=== PATIENT | male | born 1935 | race Caucasian/White ===

== ENCOUNTER → 2016-07-18 | Outpatient (CLI) | payer OTHER ==
[~2016-07-18] MED LIST: ASPI81CH43
== END | disposition home or self-care (01) ==
LOC: LAB 10:00
PROVIDERS: ATTEND Physician Assistant
DX: K62.89 Other specified diseases of anus and rectum (principal)
CPT/HCPCS: 82270; 87045; 87177; 87899

== ENCOUNTER 2017-12-27 18:34 | Emergency (ER) | payer OTHER ==
[~2017-12-27] VITALS: Ht 177.8 cm; Wt 88.5 kg
[2017-12-27 18:57] VITALS: BP 147/69
== END 2017-12-27 19:11 | disposition left against medical advice (07) ==
LOC: ER 18:39
DX: T18.2XXA Foreign body in stomach, initial encounter (principal); Z53.21 Procedure and treatment not carried out due to patient leaving prior to being seen by health care provider; X58.XXXA Exposure to other specified factors, initial encounter; Y93.89 Activity, other specified; Y99.8 Other external cause status; Y92.89 Other specified places as the place of occurrence of the external cause

== ENCOUNTER 2019-06-13 15:19 | Emergency (ER) | payer OTHER ==
[~2019-06-13] VITALS: Ht 180.3 cm; Wt 88.5 kg
[2019-06-13] MEDS ORDERED: ACETAMINOPHEN 325 MG TAB PO ONE (15:45)
[2019-06-13 16:18] LABS: Urine Bacteria FEW /hpf (None Seen); Urine Blood Negative /uL (Negative); Urine Mucus FEW (None Seen); Urine Specific Gravity 1.018 (1.001-1.035); Urine WBC 216 /hpf (0 - 3)
[2019-06-13 16:38] LABS: Basophils # (auto) 0.1 10 ^3/uL (0-0.2); Basophils % (auto) 0.9 % (0.0-2.0); Eosinophils # (auto) 0.5 10 ^3/uL (0-0.8); Eosinophils % (auto) 5.2 % (0.0-7.0); Hematocrit 43.9 % (41.0-53.0); Hemoglobin 14.8 g/dL (13.5-17.5); Lymphocytes # (auto) 2.6 10 ^3/uL (0.4-5.4); Lymphocytes % (auto) 29.4 % (10.0-50.0); Mean Corpuscular Hgb Conc. 33.9 g/dL (32.0-36.0); Mean Corpuscular Volume 100.3 fL (80.0-100.0); Monocytes # (auto) 1.1 10 ^3/uL (0-1.3); Neutrophils # (auto) 4.7 10 ^3/uL (1.6-8.6); Neutrophils % (auto) 52.5 % (37.0-80.0); Platelet Count (auto) 224 10^3/uL (140-450); Red Blood Cells 4.37 10^6/uL (4.5-5.90); Red Cell Distribution Width 14.2 % (11.8-14.3)
[2019-06-13 16:52] LABS: Albumin 3.4 g/dL (3.4-5.0); Calcium 9.3 mg/dL (8.5-10.1); Potassium 3.8 mmol/L (3.5-5.1)
[2019-06-13 16:55] LABS: BUN/Creatinine Ratio 14.2; Bilirubin, Total 0.4 mg/dL (0.2-1.0); Total Protein 7.1 g/dL (6.4-8.2)
[2019-06-13] MEDS ORDERED: CIPROFLOXACIN HCL 500 MG TAB PO ONE (17:00)
[2019-06-13] MEDS ORDERED: cefTRIAXone 1GM/50ML D5W 50 ML IV ONE (17:15)
[2019-06-13] MEDS ORDERED: SODIUM CHLORIDE 0.9% 1,000 ML IV ONE (17:15)
[2019-06-13] MEDS ORDERED: HYDROcodone-ACET 5/325MG TAB PO ONE (17:30)
[2019-06-13 18:25] VITALS: BP 155/71
== END 2019-06-13 19:23 | disposition home or self-care (01) ==
LOC: ER 15:22
DX: A05.9 Bacterial foodborne intoxication, unspecified (principal); N39.0 Urinary tract infection, site not specified; K57.10 Diverticulosis of small intestine without perforation or abscess without bleeding; K43.9 Ventral hernia without obstruction or gangrene; K44.9 Diaphragmatic hernia without obstruction or gangrene
CPT/HCPCS: 36415; 74176; 80053; 81001; 82150; 83690; 85025; 93005; 96360; 96361; 99285; J0696; J7030; 96365

== ENCOUNTER 2019-06-19 15:39 | Inpatient (IN) | payer OTHER ==
[~2019-06-19] VITALS: Ht 177.8 cm; Wt 87.3 kg
[2019-06-19] MEDS ORDERED: SODIUM CHLORIDE 0.9% 1,000 ML IV ONE (15:52)
[2019-06-19] MEDS ORDERED: HYDROmorphone HCL 2 MG/ML VL IV ONE (16:00)
[2019-06-19] MEDS ORDERED: ONDANSETRON HCL 4 MG/2 ML VIAL IV ONE (16:00)
[2019-06-19 16:34] LABS: Basophils # (auto) 0.1 10 ^3/uL (0-0.2); Eosinophils # (auto) 0.5 10 ^3/uL (0-0.8); Hemoglobin 13.7 g/dL (13.5-17.5); Lymphocytes # (auto) 1.9 10 ^3/uL (0.4-5.4); Monocytes # (auto) 1.1 10 ^3/uL (0-1.3)
[2019-06-19 16:36] LABS: Basophils % (auto) 1.2 % (0.0-2.0); Eosinophils % (auto) 6.9 % (0.0-7.0); Lymphocytes % (auto) 24.3 % (10.0-50.0); Mean Corpuscular Hemoglobin 34.5 pg (28.0-32.0); Mean Corpuscular Hgb Conc. 34.2 g/dL (32.0-36.0); Monocytes % (auto) 13.8 % (0.0-12.0); Neutrophils # (auto) 4.2 10 ^3/uL (1.6-8.6); Neutrophils % (auto) 53.8 % (37.0-80.0); Nucleated Red Blood Cells % 0.2 %; Platelet Count (auto) 191 10^3/uL (140-450); Red Blood Cells 3.96 10^6/uL (4.5-5.90); Red Cell Distribution Width 14.1 % (11.8-14.3); White Blood Cell 7.8 10^3/uL (4.4-10.8)
[2019-06-19 16:53] LABS: Calcium 8.4 mg/dL (8.5-10.1); Magnesium 2.1 mg/dL (1.6-2.6); Potassium 3.6 mmol/L (3.5-5.1)
[2019-06-19 16:57] LABS: BUN/Creatinine Ratio 15.9; Bilirubin, Total 0.3 mg/dL (0.2-1.0); Total Protein 6.4 g/dL (6.4-8.2)
[2019-06-19 17:11] LABS: INR 1.11 (0.9-1.15); Partial Thromboplastin Time 29.3 sec (23.64-32.05)
[2019-06-19] MEDS ORDERED: cefTRIAXone 1GM/50ML D5W 50 ML IV ONE (17:30)
[2019-06-19] MEDS ORDERED: FUROSEMIDE 40 MG/4 ML VIAL IV ONE (17:30)
[2019-06-19] MEDS ORDERED: ACETAMINOPHEN 500 MG TAB PO PRN (18:00)
[2019-06-19] MEDS ORDERED: ONDANSETRON HCL 4 MG/2 ML VIAL IV PRN (18:00)
[2019-06-19] MEDS ORDERED: MORPHINE SULF INJ 2 MG/ML SYRINGE 1ML IV PRN (18:00)
[2019-06-19] MEDS ORDERED: NITROGLYCERIN 0.4 MG SL TAB SL PRN (18:00)
[2019-06-19] MEDS ORDERED: ENALAPRILAT 1.25 MG/ML-1ML VIAL IV PRN (18:30)
[2019-06-19 18:54] LABS: Urine Bacteria FEW /hpf (None Seen); Urine Blood Negative /uL (Negative); Urine Hyaline Cast FEW /lpf (0 - 2); Urine Specific Gravity 1.009 (1.001-1.035); Urine WBC 1 /hpf (0 - 3)
[2019-06-19] MEDS: HYDROcodone-ACET 5/325MG TAB PO PRN (18:55)
[2019-06-19] MEDS: MORPHINE SULF INJ 2 MG/ML SYRINGE 1ML IV PRN (20:16)
--- NOTE | 2019-06-19 20:20 | NUR ---
Admitted this 84 year old male client from ER/ED. to [facility] Floor by leslie with the chief complaint of S/p fall secondary to Left Hip Fracture. Pt. placed to room 293 bed A. Pt. alert, awake, oriented x 4, @ 2L/NC continuous attached to the 02 @ the wall, lung sounds diminished, on Tele # 81 SR @ 60's to 70's @ the monitor, denies chest pain or denies chest discomfort. Pt. verbalized he fell today @ the store and experiencing Left hip pain secondary to the Left Hip Fracture. Pt. abdomen soft, rounded and non-tender. Bowels sounds present x 4 abdominal quadrants. Generally skin intact. Generally weak and needs total assist with ADL's. Pt. 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
--- NOTE | 2019-06-19 20:30 | NUR ---
Pt. given orientation to the room, room number and unit including hospital policies "no smoking" and limit one (1) person during visitation and hours of visitation. Pt. provided orientation about safety and the use of call-light, phone, TV and bed controls. Gathered data from pt. by the the resource NABOR Lira and assigned NABOR Chakraborty. Keep pt. safe, warm and comfortable in bed. Call-light within pt.'s reach. Provided pt. urinal @ the bedside.
[2019-06-19 20:40] VITALS: BP 113/71
--- NOTE | 2019-06-19 20:40 | NUR ---
Pt. decided to have his Family Password as Barnett as his nickname.
--- NOTE | 2019-06-19 21:00 | NUR ---
Daughter Monica called for her Dad's update of condition upon admission and leave her tel. number # . Informed Monica that her Dad chose his nickname Anibal as the "PASSWORD" to protect pt. confidentiality of health care information. Pt.'s daughter Monica informed RN that " 1935 " was the Password but said okay that "galloway" or "vean" is okay to as a password since its her Dad's or pt.'s nickname.
--- NOTE | 2019-06-19 21:10 | NUR ---
Another family member - a son fontana and wants to know his Dad's present condition. Notified the son to call his sister IVETH to get to know the Family PASSWORD so as to protect the pt.'s Health information. Son @ the phone verbalized understanding.
[2019-06-19] MEDS ORDERED: INFLUENZA QUAD 2019-2020 0.5ml SYRG IM ONE (21:30)
--- NOTE | 2019-06-19 21:30 | NUR ---
Primitivo, pt.'s called and asked about her husbands present condition upon admission. Pt.'s notified to ask her Daughter Monica their Family PASSWORD so as to protect pt. health information. It will be Monica , the Daughter to inform the mother named PRIMITIVO (pt.'s ) about the correct Password.
[2019-06-19 22:00] VITALS: BP 113/71
--- NOTE | 2019-06-19 22:30 | NUR ---
Pt. resting and quiet in bed. Call-light within reach. SR with 1st Deg. AVB @ the monitor @ the 70's. Pt. denies chest pain, continuous with 02 @ 2L/NC. No s/s of sob or dyspnea. Pt.'s breathing symmetrical and unlabored. Keep pt. safe and sinker winder bed. Call-light and telephone within pt.'s reach. Keep pt. room dim lighted to facilitate rest and sleep.
--- NOTE | 2019-06-20 | NUR ---
SR @ 70's @ the monitor @ [employer] # 81.
--- NOTE | 2019-06-20 | NUR ---
Pt. started on NPO post MN as ordered by the Doctor. - see order history.
[2019-06-20] MEDS: MORPHINE SULF INJ 2 MG/ML SYRINGE 1ML IV PRN ×2 (00:17→04:53)
--- NOTE | 2019-06-20 00:17 | NUR ---
Pt. given Morphine 2 mg. IV prn for severe pain about 10/10 scale @ the Left hip fracture site s/p Fall. Pt. verb. pain as aching and hurting.
--- NOTE | 2019-06-20 00:47 | NUR ---
Pt. calm and comfortable. Pt. denies pain after 30 minutes IV pain reliever Morphine Sulfate given. Pt. starting to sleep. No s/s of facial grimacing. No s/s of anxiety or agitation.
--- NOTE | 2019-06-20 02:00 | NUR ---
Pt. sleeping undisturbed @ this time. Keep pt. room environment free from unnecessary noise. Call-light within pt.'s reach.
[2019-06-20] MEDS: HYDROcodone-ACET 5/325MG TAB PO PRN (03:12)
--- NOTE | 2019-06-20 03:12 | NUR ---
Pt. given [place] 1 tab. po. for Left hip pain about moderate 6/10 scale.
--- NOTE | 2019-06-20 04:00 | NUR ---
Kept pt. on NPO. Pt. made aware. Pt. understand partially , will reenforce pt. understanding on NPO for possible surgery @ the Left Hip. See orders.
--- NOTE | 2019-06-20 04:12 | NUR ---
Pt. with facial grimacing mild pain by face and body 3/10 scale. SR @ the monitor the 80's @ Tele # 81.
[2019-06-20 05:22] VITALS: BP 131/64
[2019-06-20 06:45] LABS: Basophils # (auto) 0.1 10 ^3/uL (0-0.2); Eosinophils # (auto) 0.1 10 ^3/uL (0-0.8); Eosinophils % (auto) 1.2 % (0.0-7.0); Hemoglobin 12.9 g/dL (13.5-17.5); Neutrophils # (auto) 7.7 10 ^3/uL (1.6-8.6)
[2019-06-20 06:48] LABS: Basophils % (auto) 0.8 % (0.0-2.0); Hematocrit 37.1 % (41.0-53.0); Lymphocytes # (auto) 1.6 10 ^3/uL (0.4-5.4); Lymphocytes % (auto) 14.8 % (10.0-50.0); Mean Corpuscular Hemoglobin 34.9 pg (28.0-32.0); Mean Corpuscular Hgb Conc. 34.8 g/dL (32.0-36.0); Mean Corpuscular Volume 100.4 fL (80.0-100.0); Monocytes # (auto) 1.4 10 ^3/uL (0-1.3); Monocytes % (auto) 12.8 % (0.0-12.0); Neutrophils % (auto) 70.4 % (37.0-80.0); Platelet Count (auto) 191 10^3/uL (140-450); Red Blood Cells 3.69 10^6/uL (4.5-5.90); White Blood Cell 10.9 10^3/uL (4.4-10.8)
[2019-06-20 07:04] LABS: Albumin 2.9 g/dL (3.4-5.0); Potassium 4.2 mmol/L (3.5-5.1)
[2019-06-20 07:07] LABS: BUN/Creatinine Ratio 18.4; Calcium 8.5 mg/dL (8.5-10.1)
[2019-06-20 07:10] LABS: Bilirubin, Total 0.6 mg/dL (0.2-1.0); Total Protein 6.2 g/dL (6.4-8.2)
--- NOTE | 2019-06-20 07:30 | NUR ---
AT BEDSIDE DR QUIROZ IN TO CONSULT WITH PATIENT. INFORMED CONSENT OBTAINED FOR PROCEDURE.
[2019-06-20 08:00] VITALS: BP 114/61
--- NOTE | 2019-06-20 08:00 | NUR ---
OPENING SHIFT NOTE ASSUMED CARE OF PATIENT AWAKE AND ALERT. NO S/S OF DISTRESS NOTED. PATIENT HAS A COMPLAINT OF 10/10 PAIN TO LEFT HIP. WILL MEDICATE PER MD ORDER AND MAR. PATIENT UPDATED ON POC FOR THE DAY AND ALL QUESTIONS ANSWERED. BED IS IN LOWEST, LOCKED POSITION WITH SIDE RAILS UP X2 AND CALL LIGHT WITHIN REACH.
[2019-06-20 08:46] VITALS: BP 121/65
[2019-06-20] MEDS: OXYCODONE W/ ACETAMINOPHEN 5/325MG TABLET PO PRN ×3 (08:50→21:57)
--- NOTE | 2019-06-20 09:45 | NUR ---
MD AT BEDSIDE DR HA IN TO UPDATE PATIENT ON POC.
[2019-06-20] MEDS: FAMOTIDINE 20 MG TAB PO SCH (09:55)
[2019-06-20] MEDS ORDERED: ALUM & MAG HYDROX-SIMETH LIQ(MAALOX) 30 ML PO PRN (10:00)
[2019-06-20 12:30] VITALS: BP_SYST 121; BP_DIAS 53; BP_DIAS 65
--- NOTE | 2019-06-20 13:50 | NUR ---
AT BEDSIDE DR CHANCE AT BEDSIDE CONSULTING WITH PATIENT.
--- NOTE | 2019-06-20 14:43 | NUR ---
ECHO ELECTRICAL AND INSTRUMENTATION MANAGER AT BEDSIDE
[2019-06-20] MEDS: ENOXAPARIN SOD 40 MG/0.4 ML SYRINGE SC SCH (16:14)
[2019-06-20] MEDS ORDERED: TERA2CAP45 PO (16:28)
[2019-06-20 17:22] VITALS: BP 126/61
[2019-06-20] MEDS: TAMSULOSIN HYDROCHLORIDE 0.4 MG CAP PO SCH (18:36)
[2019-06-20 22:04] VITALS: BP 106/51
[2019-06-21] VITALS (13 sets, daily range): BP systolic 88–153; BP diastolic 53–78
--- NOTE | 2019-06-21 02:34 | NUR ---
1999 PATIENT MET AWAKE AND ALERT. LYING CALM IN A SUPINE POSITION. VERBALIZED LEFT HIP FRACTURE FOR WHICH HE IS SCHEDULED FOR SURGICAL REPAIR IN AM. PATIENT AWARE HE IS NPO POST MIDNIGHT. HE DENIED PAIN AT THIS TIME BUT STATED WILL CALL IF NEEDED.
--- NOTE | 2019-06-21 02:38 | NUR ---
2157 PATIENT MEDICATED FOR PAIN .PAIN LEVEL 10/13 2300 PATIENT SLEEPING.
[2019-06-21 06:09] LABS: Basophils # (auto) 0.1 10 ^3/uL (0-0.2); Lymphocytes # (auto) 1.9 10 ^3/uL (0.4-5.4); Lymphocytes % (auto) 17.7 % (10.0-50.0)
[2019-06-21 06:11] LABS: Eosinophils # (auto) 0.4 10 ^3/uL (0-0.8); Eosinophils % (auto) 3.4 % (0.0-7.0); Hematocrit 36.2 % (41.0-53.0); Hemoglobin 12.6 g/dL (13.5-17.5); Mean Corpuscular Hemoglobin 34.9 pg (28.0-32.0); Mean Corpuscular Hgb Conc. 34.7 g/dL (32.0-36.0); Mean Corpuscular Volume 100.6 fL (80.0-100.0); Monocytes # (auto) 1.5 10 ^3/uL (0-1.3); Monocytes % (auto) 14.1 % (0.0-12.0); Neutrophils # (auto) 6.7 10 ^3/uL (1.6-8.6); Neutrophils % (auto) 63.8 % (37.0-80.0); Nucleated Red Blood Cells % 0.1 %; Platelet Count (auto) 196 10^3/uL (140-450); Red Cell Distribution Width 14.2 % (11.8-14.3); White Blood Cell 10.6 10^3/uL (4.4-10.8)
[2019-06-21 06:27] LABS: BUN/Creatinine Ratio 19.8; Calcium 8.5 mg/dL (8.5-10.1); Magnesium 2.2 mg/dL (1.6-2.6)
[2019-06-21] MEDS: OXYCODONE W/ ACETAMINOPHEN 5/325MG TABLET PO PRN ×2 (08:12→15:53)
[2019-06-21] MEDS ORDERED: fentaNYL CITRATE 100 MCG/2 ML VL ONE (08:41)
[2019-06-21] MEDS ORDERED: PROPOFOL 10 MG/ML 20 ML IV ONE (08:41)
[2019-06-21] MEDS ORDERED: ONDANSETRON HCL 4 MG/2 ML VIAL ONE (08:41)
[2019-06-21] MEDS ORDERED: SODIUM CHLORIDE LOCK 10 ML ONE (08:41)
[2019-06-21] MEDS ORDERED: MORPHINE SULF(PF) 0.5MG/ML 10ML VIAL ONE (08:41)
[2019-06-21] MEDS ORDERED: MIDAZOLAM HCL 1MG/1ML-2 ML VIAL ONE (08:41)
--- NOTE | 2019-06-21 08:43 | NUR ---
OPENING SHIFT NOTE ASSUMED CARE OF PATIENT AWAKE AND ALERT. NO S/S OF DISTRESS NOTED. PATIENT HAS A COMPLAINT OF 10/10 PAIN TO LEFT HIP. WILL MEDICATE PER MD ORDER AND MAR. PATIENT UPDATED ON POC FOR THE DAY AND ALL QUESTIONS ANSWERED. BED IS IN LOWEST, LOCKED POSITION WITH SIDE RAILS UP X2 AND CALL LIGHT WITHIN REACH. WILL CONTINUE TO MONITOR Q1H AND PRN.
[2019-06-21] MEDS ORDERED: TETRACAINE 1% INJ 2 ML VIAL IJ ONE (08:44)
[2019-06-21] MEDS ORDERED: LIDOCAINE 1% HCL (LOCAL ANESTH.) INJ 20ML MDV ONE (08:44)
[2019-06-21] MEDS ORDERED: SUCCINYLCHOLINE CHLORIDE 20 MG/ML 10ML VIAL IV ONE (08:44)
--- NOTE | 2019-06-21 08:57 | NUR ---
OFF UNIT PATIENT TAKEN VIA GURNEY TO OR WITHOUT INCIDENT.
[2019-06-21] MEDS ORDERED: BUPIVACAINE/DEXTROSE MPF 0.75% 2 ML AMP IT ONE (09:02)
[2019-06-21] MEDS ORDERED: ceFAZolin 1GM/50ML 50 ML IV ONE (09:10)
[2019-06-21] MEDS ORDERED: EPINEPHrine HCL 1 MG/1 ML AMP ONE (09:29)
[2019-06-21] MEDS: ENOXAPARIN SOD 40 MG/0.4 ML SYRINGE SC SCH (10:00)
[2019-06-21] MEDS: FAMOTIDINE 20 MG TAB PO SCH (10:00)
[2019-06-21] MEDS: LACTATED RINGER'S 1,000 ML IV SCH ×2 (10:50→20:50)
[2019-06-21] MEDS: ceFAZolin 1GM/50ML 50 ML IV SCH ×3 (11:00→23:25)
--- NOTE | 2019-06-21 11:45 | NUR ---
BACK TO UNIT PATIENT BROUGHT BACK TO UNIT AFTER REPORT RECEIVED. PATIENT PLACED ON 4L NC SATTING AT 92% AND BEDSPREAD INSPECTOR CONNECTED. LEFT HIP SURGICAL SITE ASSESSED, DRESSING IS CLEAN, DRY, AND INTACT. PATIENT REORIENTED TO PRIMARY RN AND ROOM. WILL CONTINUE TO MONITOR.
--- NOTE | 2019-06-21 12:00 | NUR ---
SPINAL ANESTHESIA PROTOCOL INITIATED PATIENT PLACED ON CONTINUOUS PULSE OX. NIBP SET UP TO RECORD BLOOD PRESSURE EVERY HOUR. WILL CONTINUE TO MONITOR.
--- NOTE | 2019-06-21 12:10 | NUR ---
AMS DURING ROUNDING PATIENT DISCOVERED TO BE NAKED AND DISCONNECTED FROM PULSE OX, OXYGEN, NIBP AND TELE. PILLOWS AND BLANKETS SCATTERED AROUND THE FLOOR. ATTEMPTED TO REORIENT PATIENT, EFFORTS MET WITH DEFIANCE. SITTER OBTAINED AT BEDSIDE FOR SAFETY. WILL CLOSELY MONITOR.
[2019-06-21] MEDS ORDERED: HYDROmorphone HCL 2 MG/ML VL IV PRN (12:15)
[2019-06-21] MEDS ORDERED: fentaNYL CITRATE 100 MCG/2 ML VL IV PRN (12:15)
[2019-06-21] MEDS ORDERED: ONDANSETRON HCL 4 MG/2 ML VIAL IV PRN (12:15)
[2019-06-21] MEDS ORDERED: diphenhdrAMINE HCL 50 MG/1 ML VL IV PRN (12:15)
[2019-06-21] MEDS ORDERED: MORPHINE SULFATE 4 MG/ML SYR/VIAL IV PRN (12:15)
--- NOTE | 2019-06-21 12:20 | NUR ---
FAMILY FAMILY NOTIFIED OF PATIENT'S STATUS.
--- NOTE | 2019-06-21 12:31 | NUR ---
PT PLACED ON BEDSIDE CONTINUOUS PULSE OX MONITOR. ALARMS SET AND AUDIBLE. PT ON 4LNC, SPO2 94%, HR 98, RR 17.
--- NOTE | 2019-06-21 17:00 | NUR ---
MENTATION PATIENT IS COOPERATIVE AND MORE RESPONSIVE TO CARE. STAFF CONTINUES TO REORIENT HIM WITH IMPROVED SUCCESS. SITTER REMAINS AT BEDSIDE FOR SAFETY.
[2019-06-21] MEDS: TAMSULOSIN HYDROCHLORIDE 0.4 MG CAP PO SCH (18:09)
--- NOTE | 2019-06-21 20:09 | NUR ---
open note assumed care of pt. upon entering room exceptional student education teacher at bedside. pt eyes closed, breathing is even and unlabored. on 2L nc no distress noted. pt bed locked, low and 2x rails up. call light in reach. pt on continuous pulse ox and vitals q1hr per post spinal duramorph protocol. this nurse will update pt on poc later in shift. this nurse to round q1hr and prn, encouraged sitter to call as needed.
--- NOTE | 2019-06-21 20:24 | NUR ---
sitter reports that pt had momentarily woken up whilst temp was being taken and began to attempt getting out of bed, removing gown and was disoriented. sitter was able to redirect. upon this nurse entering room, pt eyes closed, breathing was regular and unlabored. no distress noted. will continue to monitor.
--- NOTE | 2019-06-21 23:16 | NUR ---
dr brooks ordered kat for immobility. pt reports trouble emptying bladder, scanner showed residual of 54ml. then pt voided 55ml, then 50 ml shortly thereafter. pt approved to attempt kat catheter placement. this nurse attempted with 14french. pt tolerated well however, no urine flow visualized, unable to advance catheter past certain point. pt remains without kat, this nurse will continue to monitor urine output.
[2019-06-22] VITALS (14 sets, daily range): BP systolic 106–136; BP diastolic 53–77
[2019-06-22] MEDS: OXYCODONE W/ ACETAMINOPHEN 5/325MG TABLET PO PRN ×2 (02:41→10:36)
[2019-06-22] MEDS: HYDROcodone-ACET 5/325MG TAB PO PRN ×2 (06:18→15:30)
[2019-06-22 07:05] LABS: Basophils # (auto) 0.1 10 ^3/uL (0-0.2); Eosinophils # (auto) 0.1 10 ^3/uL (0-0.8); Hemoglobin 11.8 g/dL (13.5-17.5); Platelet Count (auto) 194 10^3/uL (140-450); Red Blood Cells 3.42 10^6/uL (4.5-5.90)
[2019-06-22 07:08] LABS: Basophils % (auto) 0.6 % (0.0-2.0); Eosinophils % (auto) 0.6 % (0.0-7.0); Hematocrit 34.4 % (41.0-53.0); Lymphocytes # (auto) 1.8 10 ^3/uL (0.4-5.4); Lymphocytes % (auto) 13.2 % (10.0-50.0); Mean Corpuscular Hemoglobin 34.4 pg (28.0-32.0); Mean Corpuscular Hgb Conc. 34.1 g/dL (32.0-36.0); Mean Corpuscular Volume 100.7 fL (80.0-100.0); Monocytes # (auto) 2.3 10 ^3/uL (0-1.3); Monocytes % (auto) 16.3 % (0.0-12.0); Neutrophils # (auto) 9.6 10 ^3/uL (1.6-8.6); Neutrophils % (auto) 69.3 % (37.0-80.0); Red Cell Distribution Width 14.1 % (11.8-14.3); White Blood Cell 13.8 10^3/uL (4.4-10.8)
[2019-06-22] MEDS: LACTATED RINGER'S 1,000 ML IV SCH ×2 (07:17→16:50)
[2019-06-22 07:25] LABS: Albumin 2.6 g/dL (3.4-5.0); Calcium 8.3 mg/dL (8.5-10.1); Magnesium 2.2 mg/dL (1.6-2.6); Potassium 4.2 mmol/L (3.5-5.1)
[2019-06-22 07:29] LABS: BUN/Creatinine Ratio 22.9; Bilirubin, Total 0.6 mg/dL (0.2-1.0); Total Protein 6.4 g/dL (6.4-8.2)
--- NOTE | 2019-06-22 07:30 | NUR ---
Opening Shift Note Assumed care of patient, awake, noted confused. Sitter at bedside. No S/S of distress/SOB or pain. Intsructed on POC and to call for assist PRN. Patient placed on SCD's, patient provided with IS and instructed on use he verbalized understanding and return demonstration. Sitter at bedside instructed to assist patient as needed. Dressing c/d/i to left hip. Will continue to monitor for changes Q1hr and PRN.
--- NOTE | 2019-06-22 08:35 | NUR ---
Respiratory note: PT IS RESTING COMFORTABLY. NO RESPIRATORY DISTRESS NOTED. SPO2 94% ON 2LNC, HR 85, RR 16, BS CLEAR BILATERALLY. NO FURTHER RESPIRATORY INTERVENTION INDICATED AT THIS TIME. PT INFORMED TO PUSH CALL BUTTON IF INCREASED WOB, SOB, OR WHEEZING OCCURS.
[2019-06-22] MEDS: ENOXAPARIN SOD 40 MG/0.4 ML SYRINGE SC SCH (10:34)
[2019-06-22] MEDS: FAMOTIDINE 20 MG TAB PO SCH (10:35)
--- NOTE | 2019-06-22 13:00 | NUR ---
Blood pressure attachment returned to charge office to David reina. Patient laying comfortably in bed in no acute distress or sob. Sitter at bedside
--- NOTE | 2019-06-22 13:55 | NUR ---
at bedside MD Weaver at bedside, aware of patient's status. Patient stood up out of bed with walker and P.T. No new orders received at this time. Will cont care
[2019-06-22] MEDS: TAMSULOSIN HYDROCHLORIDE 0.4 MG CAP PO SCH (17:51)
--- NOTE | 2019-06-22 19:04 | NUR ---
Patient care endorsed endorsed care to Juma rn. Patient sitting up in bed no acute distress or sob noted. Sitter at bedside
--- NOTE | 2019-06-22 20:10 | NUR ---
open note assumed care of pt. upon entering room sitter at bedside, pt awake alert and oriented x3. this nurse oriented pt to date. pt on 2L NC no distress noted or expressed. pt denies any pain at this time. pt has aquacell dressing to left hip and is intact without any visible drainage. pt does have bouts of confusion, at times during this nurses interview, pt reports he is at "the bank" and quickly corrects himself. bed is locked, low and 2x rails up. call ight in reach, this nurse to round q1hr and prn. this nurse encouraged pt and sitter to call as needed.
[2019-06-23] VITALS (7 sets, daily range): BP systolic 109–153; BP diastolic 55–70
[2019-06-23] MEDS: HYDROcodone-ACET 5/325MG TAB PO PRN (02:01)
[2019-06-23 05:29] LABS: Hemoglobin 10.7 g/dL (13.5-17.5)
[2019-06-23 05:32] LABS: Basophils # (auto) 0.1 10 ^3/uL (0-0.2); Basophils % (auto) 0.9 % (0.0-2.0); Eosinophils # (auto) 0.1 10 ^3/uL (0-0.8); Hematocrit 31.5 % (41.0-53.0); Hematocrit 31.6 % (41.0-53.0); Hemoglobin 10.6 g/dL (13.5-17.5); Lymphocytes # (auto) 1.6 10 ^3/uL (0.4-5.4); Lymphocytes % (auto) 12.2 % (10.0-50.0); Mean Corpuscular Hemoglobin 33.7 pg (28.0-32.0); Mean Corpuscular Hgb Conc. 33.7 g/dL (32.0-36.0); Mean Corpuscular Volume 100.1 fL (80.0-100.0); Monocytes % (auto) 14.6 % (0.0-12.0); Neutrophils # (auto) 9.6 10 ^3/uL (1.6-8.6); Neutrophils % (auto) 71.3 % (37.0-80.0); Platelet Count (auto) 204 10^3/uL (140-450); Red Blood Cells 3.15 10^6/uL (4.5-5.90); Red Cell Distribution Width 14.1 % (11.8-14.3); White Blood Cell 13.4 10^3/uL (4.4-10.8)
[2019-06-23 05:54] LABS: Potassium 3.8 mmol/L (3.5-5.1)
[2019-06-23 05:58] LABS: BUN/Creatinine Ratio 28.8; Calcium 8.2 mg/dL (8.5-10.1); Magnesium 2.2 mg/dL (1.6-2.6)
[2019-06-23] MEDS: FAMOTIDINE 20 MG TAB PO SCH (09:47)
[2019-06-23] MEDS: ENOXAPARIN SOD 40 MG/0.4 ML SYRINGE SC SCH (09:47)
[2019-06-23] MEDS: OXYCODONE W/ ACETAMINOPHEN 5/325MG TABLET PO PRN ×2 (09:58→18:22)
[2019-06-23] MEDS ORDERED: MIDAZOLAM HCL 1MG/1ML-2 ML VIAL IV ONE (12:59)
--- NOTE | 2019-06-23 13:50 | NUR ---
Spoke to patient's family spoke to Maryana, patient's daughter, updated on POC after password confirmed. Maryana requesting provider's call to family for update as well, MD Weaver aware and states he will call family tomorrow. No new orders at this time, [facility]
[2019-06-23] MEDS: TAMSULOSIN HYDROCHLORIDE 0.4 MG CAP PO SCH (18:22)
--- NOTE | 2019-06-23 19:10 | NUR ---
Patient care endorsed endorsed care to Nataliia reina. Patient assisted to bedpan as patient states he will have a bowel movement. Sitter at bedside. Patient in no acute distress or sob. Instructed to call primary rn prn
--- NOTE | 2019-06-23 20:10 | NUR ---
Opening Shift Note Assumed care of patient, awake and alert. No S/S of distress/SOB or pain. Patient is on 2 liters of oxygen via nasal cannula. Respirations even and unlabored. Sitter at bedside. Instructed on POC and to call for assist PRN, will continue to monitor for changes Q1hr and PRN.
--- NOTE | 2019-06-23 21:06 | NUR ---
Wound care done Incision to left lower hip cleansed with wound cleanser, pat dry with 4x4 gauze, and Prim[place] dressing placed. Incision had no drainage, janice were intact, incision well-approximated, and no signs of infection.
--- NOTE | 2019-06-23 22:00 | NUR ---
SCDs placed on both of patient's legs per MD order. Patient educated purpose of SCDs is to help increase blood flow. Patient verbalized understanding.
[2019-06-24 05:00] VITALS: BP 131/71
[2019-06-24 05:58] LABS: Hematocrit 29.8 % (41.0-53.0)
[2019-06-24 06:01] LABS: Hemoglobin 10.5 g/dL (13.5-17.5)
--- NOTE | 2019-06-24 06:50 | NUR ---
Incentive Spirometer (IS) education provided Patient educated on use of IS and to use IS 10 times per hour. Patient verbalized understanding and performed return demonstration. Patient able to reach a maximum of 1,500 ml.
--- NOTE | 2019-06-24 07:00 | NUR ---
CLOSING NOTE No S/S of distress/SOB or pain. Patient is on 2 liters of oxygen via nasal cannula. Respirations even and unlabored. Sitter at bedside. SCDs are on both legs.
--- NOTE | 2019-06-24 07:30 | NUR ---
Opening Note Assumed patient care from MARCELLA RN.
--- NOTE | 2019-06-24 07:59 | NUR ---
Called PT Called physical therapist regarding PT evaluation. Patient has been been evaluated and will be seen again today.
[2019-06-24 09:00] VITALS: BP 133/73
[2019-06-24] MEDS: FAMOTIDINE 20 MG TAB PO SCH (09:53)
[2019-06-24] MEDS: HYDROcodone-ACET 5/325MG TAB PO PRN (09:54)
[2019-06-24] MEDS: ENOXAPARIN SOD 40 MG/0.4 ML SYRINGE SC SCH (09:54)
--- NOTE | 2019-06-24 10:49 | NUR ---
at bedside Dr. Weaver at bedside discussing plan of care with patient.
[2019-06-24 12:00] VITALS: BP 120/57
[2019-06-24] MEDS: MORPHINE SULF INJ 2 MG/ML SYRINGE 1ML IV PRN ×2 (13:21→18:02)
--- NOTE | 2019-06-24 13:30 | NUR ---
Up with PT Patient ambulated with physical therapist.
--- NOTE | 2019-06-24 15:19 | NUR ---
assessment Patient is a 84 year old male who is alert and oriented. Patients cognitive abilities are intact. Prior to admission patient lived home with his Chantel and functioned independently. Patient informed me he is able to care for his own ADLs. Per patient he will return home to his prior living arrangements post discharge or to SNF depending on how he is doing with ambulation. Patients PCP is Dr Dorado. Patient has a fww and a cane for home use. I will follow up with patient on discharge plan in the morning. I informed patient he has a right to speak to a social media job titles regarding all care. I informed patient he has a right to participate in any and all discharge planning. Patient does not have a POA and advanced directive. I have offered patient information on POA and advanced directives. I informed the patient the advantages and benefits of having an Advanced Directive. Patient verbalized understanding and agreed to discharge plan. Addendum: 06/24/19 at 1523 by Amada LIN Amended: Links added.
--- NOTE | 2019-06-24 16:30 | NUR ---
Patient Rounds Patient currently resting supine in bed, eyes are closed, respirations are even and unlabored. Safety precautions in place, sitter at bedside, will continue to monitor.
--- NOTE | 2019-06-24 16:32 | NUR ---
Nutrition Assessment Notes Please refer to link for full assessment notes. Est energy needs: 1550-3946 kcals (20-23 kcal/kgBW) Est protein needs: 87-96 gms/day (1.0-1.1 gm/kgBW) Will continue to monitor and reassess prn. Addendum: 06/24/19 at [address] Amended: Links added.
[2019-06-24 17:00] VITALS: BP 146/66
[2019-06-24] MEDS: TAMSULOSIN HYDROCHLORIDE 0.4 MG CAP PO SCH (17:28)
--- NOTE | 2019-06-24 17:32 | NUR ---
Patient Rounds Patient currently sitting up in bed, no signs of distress at this time. Respirations even and unlabored, safety precautions in place, will continue to monitor. Addendum: 06/24/19 at 1735 by CHE PRECIADO RN RN Feet dangling, patient denies pain at this time. Sitter at bedside.
--- NOTE | 2019-06-24 18:32 | NUR ---
Pain Reassessment Patient currently resting in bed, no signs of distress at this time. No grimmacing noted. Will continue to monitor.
--- NOTE | 2019-06-24 19:17 | NUR ---
Closing Note Report given to MARCELLA TOMLIN.
--- NOTE | 2019-06-24 19:50 | NUR ---
Opening Shift Note Assumed care of patient, awake, AAOx4 with periods of confusion. No S/S of distress/SOB or pain. On 2L oxygen via nasal cannula. On bedrest with sitter at bedside. Bed in lowest locked position, side rails up x2, call light within reach. Instructed on POC and to call for assist PRN, will continue to monitor for changes Q1hr and PRN.
--- NOTE | 2019-06-24 21:25 | NUR ---
PATIENTS CALLED FOR UPDATE. UPDATED ON PATIENT STATUS.
[2019-06-25] MEDS: HYDROcodone-ACET 5/325MG TAB PO PRN ×2 (02:00→10:37)
--- NOTE | 2019-06-25 05:00 | NUR ---
IV removal IV INFILTRATED, ERYTHEMA AND SWELLING AT SITE. DC'd with clean sterile technique, catheter fully intact. Pressure dressing applied to site. Patient tolerated well.
--- NOTE | 2019-06-25 05:30 | NUR ---
IV insertion IV access obtained, via clean sterile technique by inserting 22 gauge catheter at RIGHT UPPER ARM after 1 attempt. IV secured properly. No trauma to site. Patient tolerated well.
[2019-06-25 05:55] LABS: Basophils # (auto) 0.1 10 ^3/uL (0-0.2); Basophils % (auto) 0.8 % (0.0-2.0); Eosinophils # (auto) 0.4 10 ^3/uL (0-0.8); Eosinophils % (auto) 4.3 % (0.0-7.0); Hematocrit 30.7 % (41.0-53.0); Hemoglobin 10.6 g/dL (13.5-17.5); Lymphocytes # (auto) 2.1 10 ^3/uL (0.4-5.4); Lymphocytes % (auto) 20.5 % (10.0-50.0); Mean Corpuscular Hemoglobin 34.5 pg (28.0-32.0); Mean Corpuscular Hgb Conc. 34.5 g/dL (32.0-36.0); Mean Corpuscular Volume 99.9 fL (80.0-100.0); Monocytes # (auto) 1.5 10 ^3/uL (0-1.3); Monocytes % (auto) 15.1 % (0.0-12.0); Neutrophils % (auto) 59.3 % (37.0-80.0); Platelet Count (auto) 256 10^3/uL (140-450); Red Blood Cells 3.08 10^6/uL (4.5-5.90); Red Cell Distribution Width 14.1 % (11.8-14.3); White Blood Cell 10.1 10^3/uL (4.4-10.8)
[2019-06-25 06:09] LABS: Calcium 8.1 mg/dL (8.5-10.1); Potassium 3.7 mmol/L (3.5-5.1)
[2019-06-25 06:12] LABS: BUN/Creatinine Ratio 25.8; Magnesium 2.3 mg/dL (1.6-2.6)
--- NOTE | 2019-06-25 07:30 | NUR ---
Opening Note Assumed patient care from MARCELLA RN.
[2019-06-25 09:00] VITALS: BP 145/70
[2019-06-25] MEDS: MORPHINE SULF INJ 2 MG/ML SYRINGE 1ML IV PRN (09:30)
[2019-06-25] MEDS: ENOXAPARIN SOD 40 MG/0.4 ML SYRINGE SC SCH (09:30)
[2019-06-25] MEDS: FAMOTIDINE 20 MG TAB PO SCH (09:30)
--- NOTE | 2019-06-25 09:50 | NUR ---
Ambulated Patient walked 10feet with PT, moderate assist, and sat on bedside commode. Respirations even and unlabored; no signs of distress at this time. Will continue to monitor.
--- NOTE | 2019-06-25 10:11 | NUR ---
at bedside Dr. Weaver at bedside discussing plan of care with patient.
--- NOTE | 2019-06-25 10:28 | NUR ---
MD Per Dr. Weaver, patient and family agreeable to SNF placement. Patient to be discharged to [facility].
--- NOTE | 2019-06-25 10:30 | NUR ---
Placement Spoke with RILEY Cueto, patient to go to [facility] [phone], bed 208. Accept[address] MD Dr. Hyun Wisdom. gear repair supervisor time is 1500, [facility].
--- NOTE | 2019-06-25 10:37 | NUR ---
D/C Planning Per consult for SNF placement. Faxed clinical information to [facility] and Sarah. Per Dianne with [facility] patient has been accepted to room [address] Redd. Dianne advised me she will have bed available for patient at 15:00. Faxed clinical information to [facility]. Per Leeanna authorization for accepting facility is [id number] and for [facility] is [id number]. Placed call to [facility] transportation requesting for greens picker time to be at 15:00 via [employer] with oxygen. Informed NABOR Crews. Addendum: 06/25/19 at 1045 by LINDEN WILLIAMSON Amended: Links added.
--- NOTE | 2019-06-25 10:50 | NUR ---
Family Called Spoke with daughter, Chantel, regarding patient's plan of care. Family informed and agreeable to transfer. Addendum: 06/25/19 at 1353 by CHE PRECIADO RN RN , Chantel.
[2019-06-25 10:58] VITALS: BP 145/70
--- NOTE | 2019-06-25 11:04 | NUR ---
Family Notified Per , Pat, request, called daughterRae to update on plan of care. All questions answered.
--- NOTE | 2019-06-25 12:00 | NUR ---
Family Spoke with daughter, Monica, regarding patient concerns for hearing impairment. Per patient's daughter, the patient informed her that during his fall, he hit his head and has had difficulty hearing since accident. Will notify
--- NOTE | 2019-06-25 12:07 | NUR ---
Swathi CRUZ Left message with Dr. Weaver regarding patient/family concerns. Per patient's daughter, patient feels like his hearing has gotten worse since fall and claims he hit his head. Will follow up phone call.
--- NOTE | 2019-06-25 12:19 | NUR ---
MD Called Spoke with Dr. Weaver, per , order stat CT scan. If CT scan is negative, patient clear for discharge.
--- NOTE | 2019-06-25 12:21 | NUR ---
Family Aware Spoke with daughter, Monica, updated on plan of care and new orders.
--- NOTE | 2019-06-25 12:35 | NUR ---
Patient Off Unit Patient off unit for CT scan.
--- NOTE | 2019-06-25 12:45 | NUR ---
Patient Returned Patient returned to unit from CT.
[2019-06-25 13:00] VITALS: BP 138/62
[2019-06-25] MEDS ORDERED: INFLUENZA QUAD 2019-2020 0.5ml SYRG IM ONE (14:15)
--- NOTE | 2019-06-25 14:30 | NUR ---
Called [facility] Gave report to En[place] at [facility].
--- NOTE | 2019-06-25 14:55 | NUR ---
Flu Shot Patient confirmed that he still wants to receive flu shot. Given IM on left deltoid. Patient tolerated well with no adverse reactions. Safety precautions in place. Will continue to monitor.
--- NOTE | 2019-06-25 14:55 | NUR ---
Tele Box returned Tele box 81 returned, technical specialist cytology aware.
--- NOTE | 2019-06-25 15:46 | NUR ---
Family Spoke with daughter, Monica, regarding patient discharge, all questions answered. Informed that patient given all information to schedule follow up appointment.
--- NOTE | 2019-06-25 15:46 | NUR ---
[facility] Report given to [facility] for transport. Patient shows no signs of distress at this time. Respirations are even and unlabored. IV discontinued, pressure dressing applied. ID bands removed. Tele box sent to ICU, tele monitor aware. Patient discharged with all personal belongings and discharge packet. Patient informed to call to make follow up appointments, information provided for follow up appointments. Patient showed no signs of distress at time of departure, accompanied by two [facility] personel, family notified of transfer. Per MD request, called Dr. Weaver when patient was discharged.
== END 2019-06-25 15:46 | DRG 481 ==
LOC: EDUNIT# 15:39 → EDBD 15:39 → ER 15:39 → TELE 15:40 → TELE-WESTW 20:20
PROVIDERS: ADMIT Nurse Practitioner Acute Care; ATTEND Internal Medicine
PROC: 0QU Lower Bones, Supplement (ICD-10-PCS; 2019-06-21)
PROC: 0QS734Z Reposition Left Upper Femur with Internal Fixation Device, Percutaneous Approach (ICD-10-PCS; principal; 2019-06-21 09:40)
DX: S72.142A Displaced intertrochanteric fracture of left femur, initial encounter for closed fracture (principal); J90 Pleural effusion, not elsewhere classified; E44.0 Moderate protein-calorie malnutrition; N30.00 Acute cystitis without hematuria; I50.20 Unspecified systolic (congestive) heart failure; I13.0 Hypertensive heart and chronic kidney disease with heart failure and stage 1 through stage 4 chronic kidney disease, or unspecified chronic kidney disease; R09.89 Other specified symptoms and signs involving the circulatory and respiratory systems; N40.0 Benign prostatic hyperplasia without lower urinary tract symptoms; M81.0 Age-related osteoporosis without current pathological fracture; N18.3 Chronic kidney disease, stage 3 (moderate); I25.10 Atherosclerotic heart disease of native coronary artery without angina pectoris; K21.9 Gastro-esophageal reflux disease without esophagitis; R41.0 Disorientation, unspecified; W01.0XXA Fall on same level from slipping, tripping and stumbling without subsequent striking against object, initial encounter; Z82.3 Family history of stroke; Z82.49 Family history of ischemic heart disease and other diseases of the circulatory system; Z95.5 Presence of coronary angioplasty implant and graft; Y93.89 Activity, other specified; Y92.512 Supermarket, store or market as the place of occurrence of the external cause; Y99.8 Other external cause status; Z68.27 Body mass index [BMI] 27.0-27.9, adult
CPT/HCPCS: 36415; 70450; 71045; 73502; 76000; 80048; 80053; 81001; 83735; 83880; 85014; 85018; 85025; 85610; 85730; 86850; 86900; 86901; 87086; 93005; 93306; 94762; 96361; 96365; 96375; 97116; 97163; 97530; C1713; G0378; J0171; J0330; J0690; J0696; J2001; J2250; J2405; J2704

== ENCOUNTER 2019-09-24 11:15 | Emergency (ER) | payer OTHER ==
[~2019-09-24] VITALS: Ht 177.8 cm; Wt 81.6 kg
[~2019-09-24 11:15] MED LIST changes: -ASPI81CH43; +TERA2CAP45 PO
[2019-09-24 15:34] VITALS: BP 117/63
== END 2019-09-24 17:20 | disposition home or self-care (01) ==
LOC: ER 11:15
DX: M25.572 Pain in left ankle and joints of left foot (principal); I25.10 Atherosclerotic heart disease of native coronary artery without angina pectoris; Z90.49 Acquired absence of other specified parts of digestive tract; Z79.899 Other long term (current) drug therapy
CPT/HCPCS: 73600; 73630; 93971

== ENCOUNTER 2019-10-10 15:32 | Emergency (ER) | payer OTHER ==
[~2019-10-10] VITALS: Ht 177.8 cm; Wt 78.9 kg
[2019-10-10 15:41] VITALS: BP 124/73
[2019-10-10 16:37] LABS: Basophils # (auto) 0.1 10 ^3/uL (0-0.2); Basophils % (auto) 1.4 % (0.0-2.0); Eosinophils # (auto) 0.3 10 ^3/uL (0-0.8); Eosinophils % (auto) 2.8 % (0.0-7.0); Hematocrit 43.2 % (41.0-53.0); Hemoglobin 14.1 g/dL (13.5-17.5); Lymphocytes % (auto) 21.6 % (10.0-50.0); Mean Corpuscular Hemoglobin 32.6 pg (28.0-32.0); Mean Corpuscular Hgb Conc. 32.7 g/dL (32.0-36.0); Mean Corpuscular Volume 99.6 fL (80.0-100.0); Monocytes # (auto) 1.1 10 ^3/uL (0-1.3); Monocytes % (auto) 12.4 % (0.0-12.0); Neutrophils # (auto) 5.6 10 ^3/uL (1.6-8.6); Neutrophils % (auto) 61.8 % (37.0-80.0); Platelet Count (auto) 205 10^3/uL (140-450); Red Blood Cells 4.34 10^6/uL (4.5-5.90); Red Cell Distribution Width 15.5 % (11.8-14.3); White Blood Cell 9.1 10^3/uL (4.4-10.8)
[2019-10-10 16:43] LABS: Calcium 8.7 mg/dL (8.5-10.1)
[2019-10-10 16:46] LABS: BUN/Creatinine Ratio 15.5; Bilirubin, Total 0.4 mg/dL (0.2-1.0); Total Protein 6.6 g/dL (6.4-8.2)
[2019-10-10] MEDS ORDERED: methylPREDNISolone SOD SUCC 125 MG/2 ML VL IM ONE (17:30)
== END 2019-10-10 18:50 | disposition home or self-care (01) ==
LOC: ER 15:32
DX: M10.9 Gout, unspecified (principal); I25.10 Atherosclerotic heart disease of native coronary artery without angina pectoris; Z79.899 Other long term (current) drug therapy; Z98.61 Coronary angioplasty status; Z90.49 Acquired absence of other specified parts of digestive tract
CPT/HCPCS: 36415; 71045; 73610; 80053; 84550; 85025; 93971; 96372; 99285; J2930

== ENCOUNTER 2020-02-01 16:26 | Emergency (ER) | payer OTHER ==
[~2020-02-01] VITALS: Ht 177.8 cm; Wt 77.1 kg
[2020-02-01 16:43] VITALS: BP 110/68
[2020-02-01] MEDS ORDERED: GLUCAGON HYDROCHLORIDE (RDNA) 1 MG VIAL IM ONE (17:00)
[2020-02-01 23:39] LABS: Basophils # (auto) 0.1 10 ^3/uL (0-0.2); Basophils % (auto) 0.6 % (0.0-2.0); Eosinophils # (auto) 0.1 10 ^3/uL (0-0.8); Eosinophils % (auto) 0.4 % (0.0-7.0); Hematocrit 51.7 % (41.0-53.0); Hemoglobin 16.8 g/dL (13.5-17.5); Lymphocytes # (auto) 2.5 10 ^3/uL (0.4-5.4); Lymphocytes % (auto) 13.5 % (10.0-50.0); Mean Corpuscular Hemoglobin 32.1 pg (28.0-32.0); Mean Corpuscular Hgb Conc. 32.5 g/dL (32.0-36.0); Mean Corpuscular Volume 98.9 fL (80.0-100.0); Monocytes # (auto) 1.6 10 ^3/uL (0-1.3); Monocytes % (auto) 8.7 % (0.0-12.0); Neutrophils % (auto) 76.8 % (37.0-80.0); Platelet Count (auto) 252 10^3/uL (140-450); Red Blood Cells 5.23 10^6/uL (4.5-5.90); Red Cell Distribution Width 13.7 % (11.8-14.3); White Blood Cell 18.3 10^3/uL (4.4-10.8)
[2020-02-01 23:57] LABS: Alanine Aminotransferase 20 U/L (16-61); Albumin 3.9 g/dL (3.4-5.0); Anion Gap 8 (5-15); Aspartate Aminotransferase 16 U/L (15-37); BUN/Creatinine Ratio 20.4; Blood Urea Nitrogen 19 mg/dL (7-18); Calcium 9.1 mg/dL (8.5-10.1); Carbon Dioxide 25 mmol/L (21-32); Chloride 109 mmol/L (98-107); GFR African American 100 mL/min; GFR Non-African American 82 mL/min; Glucose 108 mg/dL (74-106); Potassium 4.2 mmol/L (3.5-5.1); Sodium 142 mmol/L (136-145)
[2020-02-02 00:01] LABS: Alkaline Phosphatase 134 U/L (45-117); Bilirubin, Total 0.5 mg/dL (0.2-1.0); Total Protein 8.2 g/dL (6.4-8.2)
== END 2020-02-01 23:23 | disposition left against medical advice (07) ==
LOC: ER 16:27
DX: K44.9 Diaphragmatic hernia without obstruction or gangrene (principal); K22.8 Other specified diseases of esophagus; R11.10 Vomiting, unspecified; Z91.018 Allergy to other foods
CPT/HCPCS: 36415; 70490; 71045; 71250; 80053; 83880; 84484; 85025; 96372; 99285; J1610

== ENCOUNTER 2020-09-09 15:53 | Emergency (ER) | payer OTHER ==
[~2020-09-09] VITALS: Ht 177.8 cm; Wt 81.6 kg
[2020-09-09 17:09] LABS: Basophils # (auto) 0.1 10 ^3/uL (0-0.2); Eosinophils # (auto) 0.3 10 ^3/uL (0-0.8); Lymphocytes # (auto) 2.3 10 ^3/uL (0.4-5.4); Monocytes # (auto) 1.1 10 ^3/uL (0-1.3)
[2020-09-09 17:10] LABS: Basophils % (auto) 1.1 % (0.0-2.0); Hemoglobin 15.3 g/dL (13.5-17.5); Lymphocytes % (auto) 22.4 % (10.0-50.0); Mean Corpuscular Hemoglobin 34.8 pg (28.0-32.0); Mean Corpuscular Hgb Conc. 35.5 g/dL (32.0-36.0); Mean Corpuscular Volume 97.8 fL (80.0-100.0); Monocytes % (auto) 10.7 % (0.0-12.0); Neutrophils # (auto) 6.5 10 ^3/uL (1.6-8.6); Neutrophils % (auto) 62.8 % (37.0-80.0); Platelet Count (auto) 193 10^3/uL (140-450); Red Blood Cells 4.39 10^6/uL (4.5-5.90); Red Cell Distribution Width 14.1 % (11.8-14.3); White Blood Cell 10.4 10^3/uL (4.4-10.8)
[2020-09-09 17:26] LABS: Alanine Aminotransferase 19 U/L (16-61); Albumin 3.5 g/dL (3.4-5.0); Anion Gap 6 (5-15); Aspartate Aminotransferase 12 U/L (15-37); BUN/Creatinine Ratio 13.3; Blood Urea Nitrogen 12 mg/dL (7-18); Calcium 8.8 mg/dL (8.5-10.1); Carbon Dioxide 26 mmol/L (21-32); Chloride 108 mmol/L (98-107); GFR African American 103 mL/min; GFR Non-African American 85 mL/min; Glucose 104 mg/dL (74-106); Potassium 4.2 mmol/L (3.5-5.1); Sodium 140 mmol/L (136-145)
[2020-09-09 17:31] LABS: Alkaline Phosphatase 117 U/L (45-117); Bilirubin, Total 0.3 mg/dL (0.2-1.0)
[2020-09-09 19:01] VITALS: BP 136/75
== END 2020-09-09 21:00 | disposition left against medical advice (07) ==
LOC: ER 15:53
DX: R20.0 Anesthesia of skin (principal); R94.31 Abnormal electrocardiogram [ECG] [EKG]; Z90.49 Acquired absence of other specified parts of digestive tract
CPT/HCPCS: 36415; 70450; 71045; 80053; 84484; 85025; 85049; 93005; 93971

== ENCOUNTER 2022-08-26 02:33 | Emergency (ER) | payer BC, OTHER ==
[~2022-08-26] VITALS: Ht 177.8 cm; Wt 84.7 kg
[2022-08-26] MEDS ORDERED: METHOCARBAMOL 500 MG TAB PO ONE (03:00)
[2022-08-26] MEDS ORDERED: LIDOCAINE 5% TOPICAL PATCH TOP ONE (03:00)
[2022-08-26] MEDS ORDERED: ACETAMINOPHEN 325 MG TAB PO ONE (03:00)
[2022-08-26 04:34] LABS: INR 1.06 (0.9-1.15); Partial Thromboplastin Time 27.4 SEC (24.5-34.5)
[2022-08-26 04:39] LABS: Albumin 3.4 g/dL (3.4-5.0); Calcium 8.9 mg/dL (8.5-10.1); Potassium 4.4 mmol/L (3.5-5.1)
[2022-08-26 04:45] LABS: Bilirubin, Total 0.5 mg/dL (0.2-1.0); Total Protein 6.7 g/dL (6.4-8.2)
[2022-08-26] MEDS ORDERED: oxyCODONE HCL 5MG TAB PO STA (06:52)
[2022-08-26 06:57] LABS: Basophils # (auto) 0.2 10 ^3/uL (0-0.2); Basophils % (auto) 1.1 % (0.0-2.0); Eosinophils # (auto) 0.2 10 ^3/uL (0-0.8); Eosinophils % (auto) 1.2 % (0.0-7.0); Hematocrit 47.4 % (41.0-53.0); Lymphocytes # (auto) 3.5 10 ^3/uL (0.4-5.4); Lymphocytes % (auto) 23.7 % (10.0-50.0); Mean Corpuscular Hemoglobin 33.9 pg (28.0-32.0); Mean Corpuscular Hgb Conc. 33.9 g/dL (32.0-36.0); Mean Corpuscular Volume 100.1 fL (80.0-100.0); Monocytes # (auto) 1.6 10 ^3/uL (0-1.3); Neutrophils # (auto) 9.3 10 ^3/uL (1.6-8.6); Nucleated Red Blood Cells % 0.1 %; Red Blood Cells 4.73 10^6/uL (4.5-5.90); White Blood Cell 14.8 10^3/uL (4.4-10.8)
[2022-08-26 07:45] VITALS: BP 165/91
== END 2022-08-26 07:47 | disposition home or self-care (01) ==
LOC: ER 02:33
DX: S25.09XA Other specified injury of thoracic aorta, initial encounter (principal); I71.40 Abdominal aortic aneurysm, without rupture, unspecified; R51.9 Headache, unspecified; M54.2 Cervicalgia; Z90.49 Acquired absence of other specified parts of digestive tract; W06.XXXA Fall from bed, initial encounter; Y93.89 Activity, other specified; Y92.89 Other specified places as the place of occurrence of the external cause; Y99.8 Other external cause status
CPT/HCPCS: 36415; 70450; 71045; 72125; 72128; 72131; 74175; 80053; 84484; 85610; 85730; 93005; 99285; Q9967